=== PATIENT | male | born 1945 ===

== ENCOUNTER 2018-05-28 05:22 | Inpatient (IN) ==
[2018-05-16 13:50] LABS: Basophils # 0.1 10*3/uL (0.0-0.2); Basophils % 0.8 % (0.0-0.8); Eosinophils # 0.2 10*3/uL (0.0-0.87); Eosinophils % 2.5 % (0.00-10.9); Hematocrit 37.8 VOL% (42.0-52.0); Hemoglobin 12.4 GM/DL (14.0-18.0); Immature Granulocytes % 0.3 %; Immature Granulocytes Absolute 0.02 #; Lymphocytes # 1.2 10*3/uL (1.4-4.0); Lymphocytes % 19.5 % (21.2-54.2); Mean Corpuscular HGB Conc 32.8 GM/DL (32-36); Mean Corpuscular Hemoglobin 30 PG (27-34); Mean Corpuscular Volume 91.3 FL (87-102); Monocytes # 0.8 10*3/uL (0.11-0.8); Monocytes % 13.7 % (1.7-12.7); Neutrophils # 3.9 10*3/uL (1.4-7.4); Neutrophils % 63.2 % (38.7-73.9); Platelet Count 225 T/CUMM (130-400); Red Blood Count 4.14 MC/CUMM (3.8-5.5); Red Cell Distribution Width 14.6 % (9.3-17.3); White Blood Count 6.1 T/CUMM (4-12)
[2018-05-16 14:11] LABS: Calcium 9.2 MG/DL (8.5-10.1); Osmolality,Calculated 283.1 MOS/KG (273-304); Potassium 4.3 MMOL/L (3.5-5.1)
[2018-05-16 14:42] LABS: Apearance,Urine CLEAR (Clear); Bacteria,Urine Occasional /HPF (Few); Bilirubin,Urine Negative (Negative); Blood, Urine Negative (Negative); Glucose,Urine (UA) Negative (Negative); Ketones,Urine Negative (Negative); Nitrite,Urine Negative (Negative); Protein,Urine Negative; RBC,Urine <1 /HPF (0-4); Squamous Epithelial Cell,Urine Occasional /HPF (0-10); Urine Color Straw (Yellow); Urine Specific Gravity 1.004 (1.001-1.035); Urine Urobilinogen < 2.0 EU/DL (0.2-1.0); WBC,Urine 1 /HPF (0-6)
[2018-05-28] MEDS ORDERED: ALVIMOPAN 12 MG CAPSULE ONE (06:26)
[2018-05-28] MEDS ORDERED: cefTRIAXone 1,000 MG VIAL ONE (06:26)
[2018-05-28] MEDS ORDERED: cefTRIAXone 1,000 MG in SYRINGE 1 EACH IV ONE (06:30)
[2018-05-28] MEDS ORDERED: ALVIMOPAN 12 MG CAPSULE PO STA (06:40)
[2018-05-28] MEDS ORDERED: diphenhydrAMINE 50 MG/1 ML VIAL IV PRN (10:44)
[2018-05-28 10:53] LABS: Apearance,Urine CLEAR (Clear); Bilirubin,Urine Negative (Negative); Blood, Urine Moderate mg/dL (Negative); Glucose,Urine (UA) Negative (Negative); Ketones,Urine Negative (Negative); Nitrite,Urine Negative (Negative); Protein,Urine Negative; RBC,Urine 20 /HPF (0-4); Urine Color Straw (Yellow); Urine Specific Gravity 1.004 (1.001-1.035); Urine Urobilinogen < 2.0 EU/DL (0.2-1.0); WBC,Urine 1 /HPF (0-6)
[2018-05-28] MEDS ORDERED: MIDAZOLAM 2 MG/2 ML VIAL ONE (10:57)
[2018-05-28] MEDS ORDERED: SEVOFLURANE 1 UNIT/15 MINUTE INH ONE (10:57)
[2018-05-28] MEDS ORDERED: ePHEDrine 50 MG/ML AMP ONE (10:57)
[2018-05-28] MEDS ORDERED: DEXAMETHASONE 10 MG/1 ML VIAL ONE (10:57)
[2018-05-28] MEDS ORDERED: fentaNYL 100 MCG/2 ML VIAL ONE (10:57)
[2018-05-28] MEDS ORDERED: PROPOFOL 200 MG/20 ML VIAL IV ONE (10:57)
[2018-05-28] MEDS ORDERED: ROCURONIUM 100 MG/10 ML VIAL IV ONE (10:58)
[2018-05-28] MEDS ORDERED: ONDANSETRON 4 MG/2 ML VIAL ONE ×2 (10:58→11:09)
[2018-05-28] MEDS ORDERED: NEOSTIGMINE 10 MG/10 ML VIAL ONE (10:58)
[2018-05-28] MEDS ORDERED: GLYCOPYRROLATE 0.4 MG/2 ML VIAL ONE (10:58)
[2018-05-28] MEDS ORDERED: PHENYLEPHRINE 1 MG/10 ML SYRINGE IV ONE (10:58)
[2018-05-28] MEDS ORDERED: ACETAMINOPHEN 1,000 MG/100 ML VIAL IV ONE (10:58)
[2018-05-28] MEDS ORDERED: ONDANSETRON 4 MG/2 ML VIAL IV PRN (11:08)
[2018-05-28] MEDS: HYDROmorphone 2 MG/1 ML VIAL IV PRN ×2 (11:08→11:15)
[2018-05-28] MEDS ORDERED: HYDROmorphone 2 MG/1 ML VIAL ONE (11:09)
[2018-05-28] MEDS: HYDROmorphone PCA 30 MG/30 ML SYRINGE IV SCH (11:15)
[2018-05-28] MEDS: SODIUM CHLORIDE 0.9% 1,000 ML IV SCH (13:05)
[2018-05-28] MEDS: LACTATED RINGERS 1,000 ML IV SCH (13:06)
[2018-05-28] MEDS ORDERED: MANNITOL 12.5 GM/50 ML VIAL IV ONE (13:30)
[2018-05-28] MEDS: ONDANSETRON 4 MG/2 ML VIAL IV PRN ×2 (16:05→21:13)
[2018-05-28] MEDS ORDERED: PHENOL 1.4% THROAT SPRAY 177 ML BOTTLE PO PRN (16:08)
[2018-05-28] MEDS ORDERED: DORZOLAMIDE 2% OPH SOLN 10 ML BOTTLE BOTH EYES SCH (21:00)
[2018-05-28] MEDS ORDERED: Mesalamine [Apriso] 1.5 GM PO SCH (21:00)
[2018-05-28] MEDS: MULTIVITAMIN (OCUVITE) TABLET PO SCH (21:11)
[2018-05-28] MEDS: ALVIMOPAN 12 MG CAPSULE PO SCH (21:11)
[2018-05-29] MEDS: SODIUM CHLORIDE 0.9% 1,000 ML IV SCH (01:17)
[2018-05-29] MEDS: ONDANSETRON 4 MG/2 ML VIAL IV PRN ×2 (01:17→05:19)
[2018-05-29] MEDS ORDERED: SIMETHICONE CHEW 125 MG TABLET PO PRN (01:23)
[2018-05-29 06:30] LABS: Basophils % 0.1 % (0.0-0.8); Hematocrit 36.4 VOL% (42.0-52.0); Hemoglobin 12.1 GM/DL (14.0-18.0); Immature Granulocytes % 0.4 %; Immature Granulocytes Absolute 0.05 #; Lymphocytes # 0.6 10*3/uL (1.4-4.0); Lymphocytes % 4.7 % (21.2-54.2); Mean Corpuscular HGB Conc 33.2 GM/DL (32-36); Mean Corpuscular Hemoglobin 30 PG (27-34); Mean Corpuscular Volume 89.9 FL (87-102); Mean Platelet Volume 10.3 FL (9.6-12.0); Monocytes # 1.2 10*3/uL (0.11-0.8); Monocytes % 10.1 % (1.7-12.7); Neutrophils # 10.3 10*3/uL (1.4-7.4); Neutrophils % 84.7 % (38.7-73.9); Platelet Count 227 T/CUMM (130-400); Red Blood Count 4.05 MC/CUMM (3.8-5.5); White Blood Count 12.1 T/CUMM (4-12)
[2018-05-29] MEDS: LACTATED RINGERS 1,000 ML IV SCH (06:34)
[2018-05-29 06:52] LABS: Calcium 8.7 MG/DL (8.5-10.1); Osmolality,Calculated 283.1 MOS/KG (273-304); Potassium 4.2 MMOL/L (3.5-5.1)
[2018-05-29 06:54] LABS: Band Neutrophils 3 % (0-10); Hypochromasia 1+; Lymphocytes 5 % (20-55); Platelet Estimate Adequate; Segmented Neutrophils 80 % (50-85); Total Cells Counted 100
[2018-05-29] MEDS ORDERED: PROMETHAZINE 25 MG/1 ML VIAL IM PRN (07:32)
[2018-05-29] MEDS ORDERED: ARMOUR THYROID PO SCH (09:00)
[2018-05-29] MEDS: LOSARTAN 50 MG TABLET PO SCH (09:37)
[2018-05-29] MEDS: ALVIMOPAN 12 MG CAPSULE PO SCH (09:37)
[2018-05-29] MEDS: MULTIVITAMIN (OCUVITE) TABLET PO SCH ×2 (09:37→21:56)
[2018-05-29] MEDS ORDERED: oxyCODONE/ACETAMINOPHEN 5-325 MG TABLET PO PRN (10:57)
[2018-05-29] MEDS ORDERED: MEPERIDINE 50 MG/1 ML VIAL IM PRN (10:58)
[2018-05-29] MEDS: HYDROmorphone PCA 30 MG/30 ML SYRINGE IV SCH (11:34)
[2018-05-29] MEDS: ALUMINUM/MAGNES/SIMETH MAX STR 30 ML UDCUP PO PRN (14:09)
[2018-05-29] MEDS: oxyCODONE/ACETAMINOPHEN 5-325 MG TABLET PO PRN (20:31)
[2018-05-30] MEDS: oxyCODONE/ACETAMINOPHEN 5-325 MG TABLET PO PRN (04:23)
[2018-05-30] MEDS: TAMSULOSIN 0.4 MG CAPSULE PO SCH ×3 (05:25→08:58)
[2018-05-30 06:40] LABS: Apearance,Urine CLEAR (Clear); Bilirubin,Urine Negative (Negative); Blood, Urine Large mg/dL (Negative); Glucose,Urine (UA) Negative (Negative); Ketones,Urine Negative (Negative); Mucus,Urine Occasional /LPF (Occasional); Nitrite,Urine Negative (Negative); Protein,Urine Negative; RBC,Urine 228 /HPF (0-4); Urine Color Yellow (Yellow); Urine Specific Gravity 1.008 (1.001-1.035); Urine Urobilinogen < 2.0 EU/DL (0.2-1.0); WBC,Urine 2 /HPF (0-6)
[2018-05-30] MEDS: MULTIVITAMIN (OCUVITE) TABLET PO SCH ×2 (08:52→20:01)
[2018-05-30] MEDS: LOSARTAN 50 MG TABLET PO SCH (08:53)
[2018-05-30 14:03] LABS: ABG HCO3 26.4 MMOL/L (20-26); ABG PCO2 36.3 MM HG (35-48); ABG PH 7.479 (7.35-7.45); ABG PO2 57.8 MM HG (80-95); ABG TCO2 27.5 MMOL/L (23-27)
[2018-05-31 07:35] VITALS: BP 121/70
[2018-05-31] MEDS: ALUMINUM/MAGNES/SIMETH MAX STR 30 ML UDCUP PO PRN (09:51)
[2018-05-31] MEDS: LOSARTAN 50 MG TABLET PO SCH (09:52)
[2018-05-31] MEDS: MULTIVITAMIN (OCUVITE) TABLET PO SCH (09:52)
[2018-05-31] MEDS: TAMSULOSIN 0.4 MG CAPSULE PO SCH (09:52)
== END 2018-05-31 11:12 | disposition home or self-care (01) | DRG 657 ==
LOC: N.OR 05:22 → N.SDSINP 05:23 → N.5E 10:44
PROVIDERS: ADMIT Urology; ATTEND Urology